=== PATIENT | male | born 1990 | race Caucasian/White ===

== ENCOUNTER 2025-03-27 16:55 | Emergency (ER) | payer MEDICAID, SELFPAY ==
[2025-03-27 16:56] VITALS: BP 125/82; PULSE 86; RESP 18; TEMP 37.4; O2SAT 96; BMI 23.8
--- NOTE | 2025-03-27 18:39 | ED.RN ---
Pt's name called for placement in ED room from waiting room. Pt not located, assumed lwbs.
--- OUTSIDE RECORDS SUMMARY | 2025-03-27 18:42 | XMS RPT_ITS | CCD ---
Author Organization [facility] Care Team Providers Care Microfabrication Engineer Manager Name Role Phone Nelson Galan DO Primary Care Provider [phone] JONY MCKEON Attending Unavailable NELSON GALAN Primary Care Unavailable Allergies Allergy Classification Reported Allergen(s) Allergy Type Date of Onset Reaction(s) Facility (4 sources) Penicillins Propensity to adverse reactions 12-06-2024 Hives [facility] Health Problems Problem Classification Problem Date Documented Da te Episodic/Chronic Anxiety disorders (9 sources) Mixed anxiety and depressive disorder; Translations: [Other specified anxiety disorders] Onset: 12-06-2024 12-06-2024 Chronic Immunizations and screening for infectious disease (9 sources) Hepatitis B screening required; Translations: [Encounter for screening for other viral diseases] Onset: 12-06-2024 12-06-2024 Episodic Other infections; including parasitic (7 sources) History of hepatitis C; Translations: [Personal history of other infectious and parasitic diseases] Onset: 12-06-2024 12-06-2024 Episodic Other infections; including parasitic (2 sources) Personal history of other infectious and parasitic diseases; Translations: [Personal history of other infectious and parasitic diseases] Onset: 12-06-2024 Episodic Residual codes; unclassified (8 sources) Insomnia; Translations: [Other insomnia] Onset: 12-06-2024 12-06-2024 Chronic Residual codes; unclassified (1 source) Other insomnia; Translations: [Other insomnia] Onset: 12-06-2024 Chronic Residual codes; unclassified (16 sources) Personal history of other specified conditions; Translations: [Other specified personal history presenting hazards to health] Onset: 12-06-2024 12-06-2024 Episodic Substance-related disorders (9 sources) Tobacco user; Translations: [Nicotine dependence, unspecified, uncomplicated] Onset: 08-04-2025 08-04-2025 Chronic Results Test Name Value Interpretation Reference Range Facility HCV RNA panel TAHIR+probeon HCV RNA TAHIR+probe [Log units/Vol] Not detected [facility] HCV RNA TAHIR+probe Qn Not detected [facility] Interpretation and review of laboratory results Normal [facility] The linear detection limit for this assay is 15 HCV IU/ml. A result of <15 IU (<1.18 log IU) indicates that HCV was detected, but at a level below the linear cutoff. A result of None Detected means that no HCV RNA was detected. This test is performed via rtPCR methodology. [facility] Progress Noteon 12-08-2024 Progress Note - Previously treated for Hep C - Will get Hep C viral load to further evaluate Normal [facility] 37on 12-06-2024 37 If anxiety, depression, and insomnia worsens, may schedule appointment sooner Normal [facility] CBC (HEMOGRAM)on 12-06-2024 Erythrocyte distribution width (RBC) [Ratio] 12.6 % Normal 11.5-15.0 [facility] Comment on above: Performed By: #### L [id number] ####Court Security Officer: NORBERTO AGUSTIN ([id number])[address] Hematocrit (Bld) [Volume fraction] 42.1 % Normal 40.0-52.0 [facility] Comment on above: Performed By: #### L [id number] ####Court Security Officer: NORBERTO [id number])[address] Hemoglobin (Bld) [Mass/Vol] 13.9 g/dL Normal 13.0-18.0 [facility] Comment on above: Performed By: #### L [id number] ####Court Security Officer: NORBERTO [id number])[address] MCH (RBC) [Entitic mass] 30.9 pg Normal 26.0-34.0 [facility] Comment on above: Performed By: #### L [id number] ####Court Security Officer: NORBERTO [id number])[facility])[address] [place] [address] MCHC 33.0 % Normal 30.5-36.0 [facility] Comment on above: Performed By: #### L [id number] ####Court Security Officer: NORBERTO AGUSTIN ([id number])[facility] ([facility])[address] [place] [address] MCV (RBC) [Entitic vol] 93.6 fL Normal 77.0-99.0 [facility] Comment on above: Performed By: #### L [id number] ####Court Security Officer: NORBERTO AGUSTIN ([id number])[facility] ([facility])[address] [place] [address] Platelet mean volume (Bld) [Entitic vol] 9.2 fL Normal 9.0-12.7 [facility] Comment on above: Performed By: #### L [id number] ####Court Security Officer: NORBERTO AGUSTIN ([id number])[facility] ([facility])[address] [place] [address] Platelets (Bld) [#/Vol] 283 10*3/uL Normal 140-440 [facility] Comment on above: Performed By: #### L [id number] ####Court Security Officer: NORBERTO AGUSTIN ([id number])[facility] ([facility])[address] [place] [address] RBC (Bld) [#/Vol] 4.50 10*6/uL Normal 4.40-5.90 [facility] Comment on above: Performed By: #### L [id number] ####Court Security Officer: NORBERTO AGUSTIN ([id number])[facility] ([facility])[address] [place] [address] WBC (Bld) [#/Vol] 10.2 10*3/uL Normal 3.6-10.7 [facility] Comment on above: Performed By: #### L [id number] ####Court Security Officer: NORBERTO AGUSTIN ([id number])[facility] ([facility])[address] [place] [address] CBC panel Auto (Bld)on 12-06 Erythrocyte distribution width (RBC) [Ratio] 12.6 % 11.5 - 15.0 % [facility] Hematocrit (Bld) [Volume fraction] 42.1 % 40.0 - 52.0 % [facility] Hemoglobin (Bld) [Mass/Vol] 13.9 g/dL 13.0 - 18.0 g/dL [facility] Interpretation and review of laboratory results Normal [facility] MCH (RBC) [Entitic mass] 30.9 pg 26.0 - 34.0 pg [facility] MCHC (RBC) [Mass/Vol] 33 % 30.5 - 36.0 % [facility] MCV (RBC) [Entitic vol] 93.6 fL 77.0 - 99.0 fL [facility] Platelet mean volume (Bld) [Entitic vol] 9.2 fL 9.0 - 12.7 fL [facility] Platelets (Bld) [#/Vol] 283 10*3/uL 140 - 440 10*3/uL [facility] RBC (Bld) [#/Vol] 4.5 10*6/uL 4.40 - 5.9 0 10*6/uL [facility] WBC (Bld) [#/Vol] 10.2 10*3/uL 3.6 - 10.7 10*3/uL [facility] COMPREHENSIVE METABOLIC PANE [place] 12-06-2024 Albumin [Mass/Vol] 4.1 g/dL Normal 3.5-5.0 [facility] Comment on above: Performed By: #### L [id number], LAB17 ####Court Security Officer: NORBERTO AGUSTIN ([id number])[facility] ([facility])[address] [place] [address] ALP [Catalytic activity/Vol] 51 U/L Normal 40-150 [facility] Comment on above: Performed By: #### L AB129, LAB17 ####Court Security Officer: NORBERTO AGUSTIN ([id number])[facility])[address] [place] [address] ALT [Catalytic activity/Vol] 22 U/L Normal <40 [facility] Comment on above: Performed By: #### L [id number], LAB17 ####Court Security Officer: NORBERTO AGUSTIN ([id number])[facility])[address] [place] [address] Anion gap [Moles/Vol] 10 mmol/L Normal 3-13 [facility] Comment on above: Performed By: #### L AB129, LAB17 ####Court Security Officer: NORBERTO AGUSTIN ([id number])[facility] ([facility])[address] [place] [address] AST [Catalytic activity/Vol] 27 U/L Normal <34 [facility] Comment on above: Performed By: #### L [id number], LAB17 ####Court Security Officer: NORBERTO AGUSTIN ([id number])[facility] ([facility])[address] [place] [address] Bilirubin [Mass/Vol] 0.4 mg/dL Normal <1.2 [facility] Comment on above: Performed By: #### L AB129, LAB17 ####Court Security Officer: NORBERTO AGUSTIN ([id number])[facility] ([facility])[address] [place] [address] Calcium [Mass/Vol] 9.6 mg/dL Normal 8.4-10.2 [facility] Comment on above: Performed By: #### L AB129, LAB17 ####Court Security Officer: NORBERTO AGUSTIN ([id number])[facility] ([facility])[address] [place] [address] [place] Chloride [Moles/Vol] 104 mmol/L Normal 98-107 [facility] Comment on above: Performed By: #### L AB129, LAB17 ####Court Security Officer: NORBERTO AGUSTIN ([id number])[facility] ([facility])[address] [place] [address] [place] CO2 [Moles/Vol] 25 mmol/L Normal 22-29 [facility] Comment on above: Performed By: #### L AB129, LAB17 ####Court Security Officer: NORBERTO AGUSTIN ([id number])[facility] ([facility])[address] [place] [address] [place] Creatinine [Mass/Vol] 0.91 mg/dL Normal 0.72-1.25 [facility] Comment on above: Performed By: #### L [id number], LAB17 ####Court Security Officer: NORBERTO AGUSTIN ([id number])[facility])[address] [place] [address] GLOMERULAR FILTRATION RATE ML/MIN/1.73 SQ M.PREDICTED >90.0 Normal >60.0 [facility] Comment on above: Result Comment: Calc ulation based on the Chronic Kidney Disease Epidemiology Collaboration (CKD-EPI) equation refit without adjustment for race Performed By: #### L [id number], LAB17 ####Court Security Officer: NORBERTO AGUSTIN ([id number])[facility])[address] [place] [address] Glucose [Mass/Vol] 85 mg/dL Normal 74-100 [facility] Comment on above: Performed By: #### L AB129, LAB17 ####Court Security Officer: NORBERTO AGUSTIN ([id number])[facility])[address] [place] [address] Potassium [Moles/Vol] 4.7 mmol/L Normal 3.5-5.1 [facility] Comment on above: Result Comment: [facility] potassium values may be up to 0.5 mmol/L lower than serum values. Performed By: #### L AB129, LAB17 ####Court Security Officer: NORBERTO AGUSTIN ([id number])[facility])[address] [place] [address] Protein [Mass/Vol] 7.0 g/dL Normal 6.4-8.3 [facility] Comment on above: Performed By: #### L AB129, LAB17 ####Court Security Officer: NORBERTO AGUSTIN ([id number])[facility])[address] [place] [address] Sodium [Moles/Vol] 139 mmol/L Normal 136-145 [facility] Comment on above: Performed By: #### L [id number], LAB17 ####Court Security Officer: NORBERTO [id number])[facility])[address] [place] [address] Urea nitrogen [Mass/Vol] 19 mg/dL Normal 8-21 [facility] Comment on above: Performed By: #### L [id number], LAB17 ####Court Security Officer: NORBERTO AGUSTIN ([phone])[facility])[address] [place] [address] Comprehensive metabolic 1998 panelon 12-06-2024 Albumin [Mass/Vol] 4.1 g/dL 3.5 - 5.0 g/dL [facility] ALP [Catalytic activity/Vol] 51 U/L 40 - 150 U/L [facility] ALT [Catalytic activity/Vol] 22 U/L NINF - 40 U/L [facility] Anion gap [Moles/Vol] 10 mmol/L 3 - 13 mmol/L [facility] AST [Catalytic activity/Vol] 27 U/L NINF - 34 U/L [facility] Bilirubin [Mass/Vol] 0.4 mg/dL NINF - 1.2 mg/dL [facility] Calcium [Mass/Vol] 9.6 mg/dL 8.4 - 10. 2 mg/dL [facility] Chloride [Moles/Vol] 104 mmol/L 98 - 10 7 mmol/L [facility] CO2 [Moles/Vol] 25 mmol/L 22 - 29 mmol/L [facility] Creatinine [Mass/Vol] 0.91 mg/dL 0.72 - 1.25 mg/dL [facility] GFR/1.73 sq M.predicted (S/P/Bld) [Vol rate/Area] - PINF [facility] Comment on above: Calculation based on the Chronic Kidney Disease Epidemiology Collaboration (CKD-EPI) equation refit without adjustment for race Glucose [Mass/Vol] 85 mg/dL 74 - 100 mg/dL [facility] Interpretation and review of laboratory results Normal [facility] Potassium [Moles/Vol] 4.7 mmol/L 3.5 - 5.1 mmol/L [facility] Comment on above: Plasma potassium chang ues may be up to 0.5 mmol/L lower than serum values. Protein [Mass/Vol] 7 g/dL 6.4 - 8.3 g/dL [facility] Sodium [Moles/Vol] 139 mmol/L 136 - 145 mmol/L [facility] Urea nitrogen [Mass/Vol] 19 mg/dL 8 - 21 mg/d L [facility] HBV surface Ab IA QnOrdered By: June Ansari on 12-06-2024 Interpretation: <8.0 Non-Reactive 8.0-11.9 Equivocal >= 12.0 Ab Detected Note: If an equivocal result is interpreted, an antibody status is unable to be determined. Collect new specimen if clinically indicated. [facility] HEPATITIS B CORE ANTIBODY, T OTAL - BKR QUESTon 12-06-2024 QUEST HEPATITIS B CORE AB TOTAL Non-Reactive Normal Nonreactive [facility] Comment on above: Result Comment: Test Performed by [email or web address], [employer] [facility], [address] [place] [address] Rafael Cristina M.D., Ph.D., Director of Laboratories , [place] [id number] Performed By: #### L [id number] ####[employer] ([employer])[address] [place] [address] [place] HEPATITIS B SURFACE ANTIBODY on 12-06-2024 HEPATITIS B VIRUS SURFACE AB >1000.0 Normal [facility] Comment on above: Result Comment: KASHMIR Fraire COMMENTS: Interpretation: <8.0 Non-Reactive 8.0-11.9 Equivocal >= 12.0 Ab Detected Note: If an equivocal result is interpreted, an antibody status is unable to be determined. Collect new specimen if clinically indicated. Performed By: #### L [id number], [id number] ####Court Security Officer: NORBERTO AGUSTIN ([id number])[facility] ([address] HEPATITIS C VIRAL LOADon HCV RNA QUANT (ND) Not detected Normal <15 [facility] Comment on above: Performed By: #### L [id number] ####Court Security Officer: NORBERTO AGUSTIN ([id number])[facility] ([facility])[address] [place] [address] HCV RNA QUANT LOG (ND) Not detected Normal <1.18 [facility] Comment on above: Result Comment: KASHMIR Fraire COMMENTS: The linear detection limit for this assay is 15 HCV IU/ml. A result of <15 IU (<1.18 log IU) indicates that HCV was detected, but at a level below the linear cutoff. A result of None Detected means that no HCV RNA was detected. This test is performed via rtPCR methodology. Performed By: #### L [id number] ####Court Security Officer: NORBERTO AGUSTIN ([id number])[facility] ([facility])[address] [place] [address] HIV 1+2 Ab+HIV1 p24 Ag IA Ql on 12-06-2024 Interpretation and review of laboratory results Normal [facility] HIV1,2 COMBO ANTIGEN-ANTIBOD Y SCREENon 12-06-2024 HIV 1,2 COMBO ANTIGEN/ANTIBODY Non-Reactive Normal Nonreactive [facility] Comment on above: Result Comment: The specimen was non-reactive for HIV-1 and HIV-2 antibodies and p24 antigen using an FDA-cleared 4th generation HIV test. Based on this non-reactive screen result, further reflexive testing was not indicated and was, therefore, not performed. Performed By: #### L [id number], [id number] ####Court Security Officer: NORBERTO AGUSTIN ([id number])[facility] ([facility])[address] [place] [address] Laboratory - Chemistry and C hemistry - challengeon 12-06-2024 TSH Qn 1.38 m[IU]/L [facility] Laboratory - Microbiology an d Antimicrobial susceptibilityOrdered By: June Ansari on 12-06-2024 HBV surface Ab IA Qn mIU/mL [facility] Laboratory - Microbiology an d Antimicrobial susceptibilityon 12-06-2024 HIV 1+2 Ab+HIV1 p24 Ag IA Ql Non-Reactive Nonreactive [facility] Comment on above: The specimen was non -reactive for HIV-1 and HIV-2 antibodies and p24 antigen using an FDA-cleared 4th generation HIV test. Based on this non-reactive screen result, further reflexive testing was not indicated and was, therefore, not performed. 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 - Currently staying at [facility] - HIV screening today Orders: HIV-1 and HIV-2 Antigen-Antibody Screen Normal [facility] Progress Note - Chronic, controlle d - Current PHQ-9 of 1, no SI/HI - Lives at [facility] living, sees counselling routinely - Overall feels well currently, not interested in medical intervention - Discussed to scheduled appt sooner if feeling increased depressed/anxious to discuss further Orders: Comprehensive metabolic panel CBC TSH Normal [facility] Progress Note - Previously treated for Hep C - Will get Hep C viral load to further evaluate Orders: Hepatitis C viral load Normal [facility] Progress Note - Chronic, controlle d - Takes melatonin nightly PRN - Is sleeping well currently, not interested in further intervention - will get TSH and CMP to evaluate Orders: Comprehensive metabolic panel TSH Normal [facility] Progress Note Ma time rooming patient 6 minutes Tay Griggs MA on 12/06/2024 at 2:39 PM [facility] Progress Note - Chronic, uncontrolled - Is decreasing intake, currently 5 cigarettes daily, mostly vaping - Encouraged cessation Orders: Comprehensive metabolic panel CBC Normal [facility] Progress Note - Route screening fo r Hep B Orders: Hepatitis B surface antibody Hepatitis B core antibody, total Normal [facility] Progress Note Teaching Physician Note Indirect Supervision - Modifier GE During or immediately after this visit, I discussed this case with the treating resident. Our discussion included the history obtained by the resident, the resident's exam findings, and the resident's treatment plan. Please see resident?s note for further details.This service has been performed by a resident without the presence of a teaching physician under the primary care exception (GE Modifier). Normal [facility] Progress Note [facility] - [address] [facility] [address] Dept: [phone] Dept Loc: [phone] 12/06/2024 Visit type: New Patient Appointment Reason for Visit: New Patient, Blood Work, and Referral ASSESSMENT/PLAN Assessment & Plan Depression with anxiety - Chronic, controlled - Current PHQ-9 of 1, no SI/HI - Lives at sober living, sees counselling routinely - Overall feels well currently, not interested in medical intervention - Discussed to scheduled appt sooner if feeling increased depressed/anxious to discuss further Orders: Comprehensive metabolic panel CBC TSH Other insomnia - Chronic, controlled - Takes melatonin nightly PRN - Is sleeping well currently, not interested in further intervention - will get TSH and CMP to evaluate Orders: Comprehensive metabolic panel TSH Tobacco use disorder - Chronic, uncontrolled - Is decreasing intake, currently 5 cigarettes daily, mostly vaping - Encouraged cessation Orders: Comprehensive metabolic panel CBC History of substance use disorder - 80 Days sober currently from Meth and Marijuana - Currently staying at [facility] - HIV screening today Orders: HIV-1 and HIV-2 Antigen-Antibody Screen History of hepatitis C - Previously treated for Hep C - Will get Hep C viral load to further evaluate Orders: Hepatitis C viral load Need for hepatitis B screening test - Route screening for Hep B Orders: Hepatitis B surface antibody Hepatitis B core antibody, total History of alcohol use disorder - Currently 80 days sober while living at sober living - Evaluate LFTs with CMP Follow up in about 3 months (around 03/08/2025) for Routine checkup. Subjective Patient: Luis Alberto Cali is a 34 y.o. male with PMH of Anxiety, Depression, Insomnia, HPI Patient presents for a new patient appointment. Stays with recovery housing. PMH - Anxiety, depression, insomnia. - Has been in counseling since 7, and currently still is at sober living facility - Previously on Zoloft, PHQ-9 of 1 today, not interested in medications, no SI/HI Meds - Melatonin at night PSH - Knee cap surgery - Tonsils & adenoids removed SH - 80 days sober, smoking weed and meth most recently. Stays with sober living for this period, since 24 of September. - Nothing with injectables or needles (only once in life injected drugs) - Never drinks alcohols - 5/day cigarettes and vaping. Used to be a pack of day. Continuing to decrease by self. - Had hepatitis C, incarcerated [id number], and 2020. - Works at [employer] - Mom - diabetes, htn, cancer liver, Dad - Condition - Sister and brother, dont know Allergies - Penicillin gets hives and rash. Was a kid when had this. Hospitalizations - None Review of Systems All other systems reviewed and are negative. Allergies[1] Current Medications[2] Medical History[3] Surgical History[4] Family History[5] Social History Tobacco Use Smoking status: Every Day Current packs/day: 0.25 Types: Cigarettes Smokeless tobacco: Current Substance Use Topics Alcohol use: Not on file Objective BP 134/72 Pulse 64 Temp 36.4 ?C (97.5 ?F) (Temporal) Ht 6' 3 (1.905 m) Wt 186 lb (84.4 kg) SpO2 97% Comment: room air BMI 23.25 kg/m? Physical Exam Constitutional: Appearance: Normal appearance. HENT: Head: Normocephalic and atraumatic. Mouth/Throat: Mouth: Mucous membranes are moist. Eyes: Conjunctiva/sclera: Conjunctivae normal. Pupils: Pupils are equal, round, and reactive to light. Cardiovascular: Rate and Rhythm: Normal rate and regular rhythm. Pulses: Normal pulses. Heart sounds: Normal heart sounds. No murmur heard. No friction rub. No gallop. Pulmonary: Effort: No respiratory distress. Breath sounds: Normal breath sounds. No wheezing or rales. Abdominal: General: Abdomen is flat. There is no distension. Palpations: Abdomen is soft. Tenderness: There is no abdominal tenderness. There is no guarding. Musculoskeletal: General: No swelling. Right lower leg: No edema. Left lower leg: No edema. Skin: Coloration: Skin is not jaundiced. Findings: No lesion. Neurological: General: No focal deficit present. Mental Status: He is alert and oriented to person, place, and time. Psychiatric: Mood and Affect: Mood normal. Behavior: Behavior normal. Data Reviewed and Summarized: Medical decision making including: See Assessment/Plan [facility] Staffed with: Dr. Vahid Mckeon Signed by: Nelson Galan DO, PGY : 2 Electronically signed on: 12/08/2024 [1] Allergies Allergen Reactions Penicillins Hives [2] No current outpatient medications on file. [3] No past medical history on file. [4] No past surgical history on file. [5] No family history on file. Normal [facility] Progress Note - Currently 80 days sober while living at sober living - Evaluate LFTs with CMP Normal [facility] THYROID STIMULATING HORMONEo n 12-06-2024 THYROID STIMULATING HORMONE 1.38 uIU/mL Normal 0.35-4.94 [facility] Comment on above: Performed By: #### L [id number], LAB17 ####Court Security Officer: NORBERTO AGUSTIN ([phone])[facility] ([address] TSH Qnon 12-06-2024 Interpretation and review of laboratory results Normal [facility] Provider Note - ED v2on 06-05 Provider Note - ED v2 Provider Note - ED v2: Chart Review: ED NOTES ED NOTES: ====HPI==== Patient states he has a past medical history of dental issues. He states over the last 1-2 days he's noticed increasing pain and swelling to his right lower jaw. He denies any recent trauma fevers chills or trouble breathing or swallowing. He states he's had multiple dental infections in the past and feels he has another one based on his symptoms and therefore comes in today discuss antibiotic treatment. Character: Severity: Mild to moderate Exacerbated by: Nothing Improved by: Nothing Recently seen by: Denies ====Review of Systems==== 10 point system review is negative except for those specifically mentioned in history of present illness ====Physical Exam==== Constitutional/Genera l: Alert and conversant, well appearing, nontoxic, and in NAD. Head: Normocephalic and atraumatic. Eyes: PER, conjunctive normal, sclera nonicteric, subconjunctival layer is pink. Mouth: handling secretions, no trismus, moist mucous membranes. Multiple dental caries are present without obvious dental abscess and there is no airway edema or compromise Neck: Supple, full ROM, no stridor, no crepitus, no meningeal signs. Trachea at midline. No brawny edema in the submental space to suggest Jeremie's angina Respiratory: not in respiratory distress. Chest: normal chest movement Lymphatics: Positive anterior cervical lymphadenopathy Musculoskeletal: Moves all extremities, warm and well perfused Integument: Skin warm and dry, no rashes. Neurologic: GCS 15, no focal deficits Psychiatric: Normal affect. ====ED Course and Medical Decision Making==== Patient arrived with stable vitals she had no respiratory distress no airway edema and no changes to suggest Jeremie's angina. Therefore this time I feel no need for imaging or laboratory studies. We discussed possible dental block for pain control but patient does not want this at this time. Therefore patient will be started on clindamycin for infection control and discharged with outpatient follow-up Portions of this note were dictated by speech recognition. An attempt at proof reading was made to minimize errors. Minor errors in preschool assistant principal may be present. Please call if questions.. HISTORY OF PRESENTING ILLNESS LUIS ALBERTO is a 28 year old Male and was seen by me at 20-Jun-2019 20:38 for a chief complaint of toothache (pain started yesterday, swelling started today, bottom tooth on right side, has chipped tooth, poor dental care, no dentist)(1). Triage Information: Most recent Vital Sign Value Date Temp (F): 98.6 06-20-2019 20:37 Temp (C): 37 06-20-2019 20:37 Heart Rate (beats/min): 87 06-20-2019 20:37 Respirations (breaths/min): 18 06-20-2019 20:37 SpO2 (%): 99 06-20-2019 20:37 BP Systolic (mm Hg): 141 06-20-2019 20:37 BP Diastolic (mm Hg): 91 06-20-2019 20:37 PAST MEDICAL HISTORY ATTESTATION: I have reviewed and confirmed nurse's/medic's notes for patient's medications, allergies, medical history, and surgical history ALLERGIES/INTOLERANCE S: No Known Allergies HEALTH HISTORY: No documented data. OUTPATIENT MEDICATIONS: Home Medications Review Status for Reconciliation: N/A Med Status: N/A No documented data. SIGNIFICANT EVENTS: Past Surgical History Description:Right knee surgery CLINICAL IMPRESSION Diagnosis/Annotation: ED Dx Name:Dental caries Code:K02.9 Name:Dental infection Code:K04.7 Dispostion: discharged Type: home ATTESTATION CRITICAL CARE TIME Is this a critically ill patient: no Electronic Signatures: Josue Campoverde) (Signed 20-Jun-2019 21:18) Authored: Provider Note - ED v2 Last Updated: 20-Jun-2019 21:18 by Josue Campoverde () References: 1. Data Referenced From Triage - ED 20-Jun-2019 20:37 [facility] Risk Screen - Adult Emergenc yon 06-20-2019 Risk Screen - Adult Emergency Preferred Language: Preferred Language: Preferred Language for Discussing Health Care (patient/designee)Eng azul Advanced Directives: Advance Directive/DNRno Advance Directive Information Givenpatient/family declined Family Violence Adult: Abuse Screen: Are you or have you been threatened or abused physically, emotionally, or sexually by anyoneno Learning Assessment (Patient): Learning Assessment (Patient): Patient is Able to be Assessed for Learningyes Factors Influencing Readiness to Learnmotivation to learn Factors that Impact Ability to Learnnone Devices/Methods Used to Communicatenone Learning Preferencesaudio Cultural Considerationsnone Developmental Considerationsnone Taoism Considerationsnone Learning Assessment (Other Learner): Learning Assessment (Other Learner): Other learner availableno Pressure Injury/TB/Substance: Pressure Injury: Pressure Injury Present on Admissionno Do you have a coughno Substance Use Current or Former Historynever: e-Cigarette/Vaping, Alcohol YES: Cigarette/Tobacco, Street Drugs Smoking Statuscurrent every day smoker Tobacco Cessation Education (provide if tobacco use within the last 12 mos) patient declined Drug Usedaily Street Drug/Medication/ Inhalant Use Additional Commentsweed Admission Risk Screen: Significant IndicatorsComplete CAGE: CAGE: Is this an injured patient at a Trauma Center ([facility]/[place]): no Electronic Signatures: Bhavani Enriquez) (Signed 20-Jun-2019 20:46) Authored: Preferred Language, Advanced Directives, Family Violence Adult, Learning Assessment (Patient), Learning Assessment (Other Learner), Pressure Injury/TB/Substance, CAGE Last Updated: 20-Jun-2019 20:46 by Bhavani Enriquez (ZARI) [facility] Triage - EDon 06-20-2019 Triage - ED Quick Triage: The patient and/or guardian verbally acknowledges placement for services into the following (when Urgent Care Service hours are operating):emergency department Chart Review: CHIEF COMPLAINT LUIS ALBERTO CALI is a Male patient with a chief complaint of toothache (pain started yesterday, swelling started today, bottom tooth on right side, has chipped tooth, poor dental care, no dentist). Triage Date/Time: 20-Jun-2019 20:37 Pain Rating (0-10): 9 = Severe Vital Signs: Temperature: 98.6F ( 37.0C) taken oral Blood Pressure: 141/91 Mean: Heart Rate: 87 Respiratory Rate: 18 Pulse Oximetry: 99% on room air, no respiratory support. Height: 6 feet 2.00 inches. 187.9 CM Weight: 180.0 pounds. Calculated 81.6 kg. (stated) Calculated BMI (kg/m2): 23.111 Calculated BSA (m2) 2.06 Jeffrey Coma Scale: Best Eye Response: (E4) spontaneous Best Motor Response: (M6) obeys commands Best Verbal Response: (V5) oriented Jeffrey Score: 15 Cough lasting greater than 3 weeks: no Travel outside of [facility]: no Allergies: no Patient has homicidal thoughts: no JASMYN: 4 Symptoms Are POSITIVE For: earache, facial pain, jaw pain, mouth sores, pain (describe), toothache and tooth loss. Symptoms Are Negative For: bleeding, fever and headache. Risk Screens Suicide Risk Screen In the Past Month: Have you wished you were or wished you could go to sleep and not wake up no In the Past Month: Have you had any actual thoughts of killing yourself no In Your Lifetime: Have you ever done anything, started to do anything, or prepared to do anything to end your life no Hancock Fall Scale Screening Has the patient fallen before (or is the patient in the ED as a result of a fall) has not had a fall Does the patient have an impaired gait does not have impaired gait Is the patient cognitively impaired not cognitively impaired Interventions: Santi Fall Interventions: *patient oriented to surroundings and call system, * patient/family falls education completed and documented, *patients fall status communicated during bedside handoff, *whiteboard updated, *mode of toileting discussed with patient, *bed in low position with brakes locked, *call light in reach, * non-skid footwear PAIN Pain Scale Used: JEFFREY Pain Rating (0-10): 9 = Severe Past Medical History: Past Medical History Reviewedyes Right knee surgery: Past Surgical History, Active Electronic Signatures: Bhavani Enriquez (RN) (Signed 20-Jun-2019 20:42) Authored: Triage, Past Medical History Last Updated: 20-Jun-2019 20:42 by Bhavani Enriquez (RN) [facility] Vital Signs Date Time Vital Sign Value Performing Clinician Faci suma 12-06-2024 14:40-0400 Diastolic blood pressure 72 mm[Hg] Nelson Mcclurei DO Work Phone: [employer] 12-06-2024 14:40-0400 Heart rate 64 /min Nelson Mcclurei DO Work Phone: [employer] 12-06-2024 14:40-0400 Systolic blood pressure 134 mm[Hg] Nelson Mcclurei DO Work Phone: [employer] 12-06-2024 14:34-0400 Body height 190.5 cm Nelson Kamii DO Work Phone: [employer] 12-06-2024 14:34-0400 Body mass index (BMI) [Ratio] 23.25 kg/m2 Nelson Breonnadkhani DO Work Phone: [employer] 12-06-2024 14:34-0400 Body temperature 97.5 [degF] Nelson Mcclurei DO Work Phone: [employer] 12-06-2024 14:34-0400 Body weight 84.37 kg Nelson Mcclurei DO Work Phone: [employer] 12-06-2024 14:34-0400 SaO2% (BldA) [Mass fraction] 97 % Nelson Breonnadkhani DO Work Phone: [employer] Comment on above: room air Encounters Encounter Date Encounter Type Care Provider Facility Start: 12-10-2024 End: 12-10-2024 Follow-up encounter Nelson Mcclurei DO Work Phone: [facility] [place] Comment on above: Comprehensive metabo lic panel, Hepatitis B surface antibody, Hepatitis B core antibody, total, Additional followed-up results: 4 Start: 12-06-2024 End: 12-06-2024 Office outpatient new 30 minutes Jony Mckeon MD Work Phone: [facility] [place] Comment on above: Depression with anxi ety (Primary Dx); Other insomnia; Tobacco use disorder; History of substance use disorder; History of hepatitis C; Need for hepatitis B screening test; History of alcohol use disorder Start: 12-06-2024 End: 12-06-2024 ambulatory JONY MCKEON [facility] Procedures Date Procedure Procedure Detail Performing Clinician Start: 12-06-2024 Comprehensive metabo lic panel Nelson Cynthia DO Work Phone: Start: 12-06-2024 Hepatitis b surf ant ibody hbsab Nelson Galan DO Work Phone: Start: 12-06-2024 Iaad ia hiv-1 ag w/h iv-1 & hiv-2 antbdy single Nelson Cynthia DO Work Phone: Plan of Treatment Date Care Activity Detail Author Start: 08-22-2066 RSV Immunization for Adults (1 - 1-dose 75+ series) RSV Immunization for Adults (1 - 1-dose 75+ series) [facility] Start: 08-22-2041 Zoster Vaccines (1 of 2) Zoster Vacc kelsi (1 of 2) [facility] Start: 06-08-2025 Depression Monitoring Depression Mon itoring [facility] Start: 03-09-2025 End: 03-09-2025 Patient encounter procedure 03/09/2025 10:10 AM EST Office Visit [facility] [address] [place] [address] Beau Rizzo DO [address] [place] [address] [facility] Start: 01-03-2025 Influenza vaccination Influenza Vacc ine (#1) [facility] Start: 01-04-2024 COVID-19 Vaccine ( season) COVID-19 Vaccine ( season) [facility] Start: 08-22-2010 DTaP/Tdap/Td Vaccine s (1 - Tdap) DTaP/Tdap/Td Vaccines (1 - Tdap) [facility] Start: 08-22-2010 Hepatitis B Vaccines (1 of 3 - 19+ 3-dose series) Hepatitis B Vaccines (1 of 3 - 19+ 3-dose series) [facility] Start: 08-22-2010 Pneumococcal Vaccine : Pediatrics (0 to 5 Years) and At-Risk Patients (6 to 49 Years) (1 of 2 - PCV) Pneumococcal Vaccine: Pediatrics (0 to 5 Years) and At-Risk Patients (6 to 49 Years) (1 of 2 - PCV) [facility] Start: 08-22-2004 Varicella vaccination Varicell a Vaccines (1 of 2 - 13+ 2-dose series) [facility] Start: 08-22-1992 MMR Vaccines (1 of 1 - Standard series) MMR Vaccines (1 of 1 - Standard series) [facility] Start: 1991 Lipid panel Lipid Panel [facility] Hepatitis B core antibody, total Hepatitis B core antibody, total Lab Routine Need for hepatitis B screening test 12/06/2024 4:10 PM EDT [facility] Work Phone: Payers Date Payer Category Payer Medicaid HMO [employer] [id number] 2024 Medicaid [id number] Social History Date Type Detail Facility Start: 12-06-2024 Tobacco smoking status WYIS Smokes t obacco daily [facility] History of tobacco use Cigarette Smoker [facility] Start: 12-06-2024 Tobacco use and exposure User of smokeless tobacco [facility] Start: 12-06-2024 History of Social function [facility] Start: 12-06-2024 Alcohol Use Disorder Identification Test - Consumption [AUDIT-C] [facility] How often to you hav e a drink containing alcohol? Never [facility] Average Number of Drinks Not on file [facility] How hard is it for y ou to pay for the very basics like food, housing, medical care, and heating Somewhat hard [facility] Start: 1991 Sex assigned at Not on file [facility] Start: 12-03-2021 Sex Male (finding) [facility] Functional Status Date Assessment Result Facility 12-06-2024 Patient Health Questionnaire 2 item (PHQ- 2) [Reported] [facility] Clinical Notes 12-06-2024 to 12-08-2024 Assessment & Plan Note - Nelson Galan DO - 12/08/2024 9:25 AM EDTAssessment & Plan Note - Nelson Galan DO - 12/08/2024 9:25 AM EDTNelson Galan DO - 12/06/2024 2:30 PM EDT Note Date & Type Note Facility 12-08-2024 Evaluation + Plan note Associ ated Problem(s): History of hepatitis C - Previously treated for Hep C - Will get Hep C viral load to further evaluate [facility] 12-08-2024 Miscellaneous Notes Associate d Problem(s): History of hepatitis C - Previously treated for Hep C - Will get Hep C viral load to further evaluate Associated Problem(s): Depression with anxiety - Chronic, controlled - Current PHQ-9 of 1, no SI/HI - Lives at sober living, sees counselling routinely - Overall feels well currently, not interested in medical intervention - Discussed to scheduled appt sooner if feeling increased depressed/anxious to discuss further Orders: Comprehensive metabolic panel CBC TSH Associated Problem(s): Other insomnia - Chronic, controlled - Takes melatonin nightly PRN - Is sleeping well currently, not interested in further intervention - will get TSH and CMP to evaluate Orders: Comprehensive metabolic panel TSH Associated Problem(s): Tobacco use disorder - Chronic, uncontrolled - Is decreasing intake, currently 5 cigarettes daily, mostly vaping - Encouraged cessation Orders: Comprehensive metabolic panel CBC Associated Problem(s): History of substance use disorder - 80 Days sober currently from Meth and Marijuana - [facility] - HIV screening today Orders: HIV-1 and HIV-2 Antigen-Antibody Screen Associated Problem(s): Need for hepatitis B screening test - Route screening for Hep B Orders: Hepatitis B surface antibody Hepatitis B core antibody, total Associated Problem(s): History of alcohol use disorder - Currently 80 days sober while living at [facility] - Evaluate LFTs with CMP Associated Problem(s): History of hepatitis C - Previously treated for Hep C - Will get Hep C viral load to further evaluate Orders: Hepatitis C viral load documented in this encounter [facility] 12-06-2024 Evaluation + Plan note Associ ated Problem(s): Depression with anxiety - Chronic, controlled - Current PHQ-9 of 1, no SI/HI - [facility], [facility] - Overall feels well currently, not interested in medical intervention - Discussed to scheduled appt sooner if feeling increased depressed/anxious to discuss further Orders: Comprehensive metabolic panel CBC TSH [facility] 12-06-2024 Evaluation + Plan note Associ ated Problem(s): Other insomnia - Chronic, controlled - Takes melatonin nightly PRN - Is sleeping well currently, not interested in further intervention - will get TSH and CMP to evaluate Orders: Comprehensive metabolic panel TSH [facility] 12-06-2024 Evaluation + Plan note Associ ated Problem(s): Tobacco use disorder - Chronic, uncontrolled - Is decreasing intake, currently 5 cigarettes daily, mostly vaping - Encouraged cessation Orders: Comprehensive metabolic panel CBC [facility] 12-06-2024 Evaluation + Plan note Associ ated Problem(s): History of substance use disorder - 80 Days sober currently from Meth and Marijuana - [facility] - HIV screening today Orders: HIV-1 and HIV-2 Antigen-Antibody Screen [facility] 12-06-2024 Evaluation + Plan note Associ ated Problem(s): Need for hepatitis B screening test - Route screening for Hep B Orders: Hepatitis B surface antibody Hepatitis B core antibody, total [facility] 12-06-2024 Evaluation + Plan note Associ ated Problem(s): History of alcohol use disorder - Currently 80 days sober while living at sober living - Evaluate LFTs with CMP [facility] 12-06-2024 Evaluation + Plan note Associ ated Problem(s): History of hepatitis C - Previously treated for Hep C - Will get Hep C viral load to further evaluate Orders: Hepatitis C viral load T [facility] 12-06-2024 History of Presen t illness Narrative Images from the original note were not included. [facility] - [address] [address] Dept: [phone] Dept Loc: [phone] 12/06/2024 Visit type: New Patient Appointment Reason for Visit: New Patient, Blood Work, and Referral ASSESSMENT/PLAN Assessment & Plan Depression with anxiety - Chronic, controlled - Current PHQ-9 of 1, no SI/HI - Lives at sober living, sees counselling routinely - Overall feels well currently, not interested in medical intervention - Discussed to scheduled appt sooner if feeling increased depressed/anxious to discuss further Orders: Comprehensive metabolic panel CBC TSH Other insomnia - Chronic, controlled - Takes melatonin nightly PRN - Is sleeping well currently, not interested in further intervention - will get TSH and CMP to evaluate Orders: Comprehensive metabolic panel TSH Tobacco use disorder - Chronic, uncontrolled - Is decreasing intake, currently 5 cigarettes daily, mostly vaping - Encouraged cessation Orders: Comprehensive metabolic panel CBC History of substance use disorder - 80 Days sober currently from Meth and Marijuana - Currently staying at [facility] - HIV screening today Orders: HIV-1 and HIV-2 Antigen-Antibody Screen History of hepatitis C - Previously treated for Hep C - Will get Hep C viral load to further evaluate Orders: Hepatitis C viral load Need for hepatitis B screening test - Route screening for Hep B Orders: Hepatitis B surface antibody Hepatitis B core antibody, total History of alcohol use disorder - Currently 80 days sober while living at sober living - Evaluate LFTs with CMP Follow up in about 3 months (around 03/08/2025) for Routine checkup. Subjective Patient: Luis Alberto Cali is a 34 y.o. male with PMH of Anxiety, Depression, Insomnia, HPI Patient presents for a new patient appointment. Stays with recovery housing. PMH - Anxiety, depression, insomnia. - Has been in counseling since 7, and currently still is at sober living facility - Previously on Zoloft, PHQ-9 of 1 today, not interested in medications, no SI/HI Meds - Melatonin at night PSH - Knee cap surgery - Tonsils & adenoids removed SH - 80 days sober, smoking weed and meth most recently. Stays with sober living for this period, since 24 of September. - Nothing with injectables or needles (only once in life injected drugs) - Never drinks alcohols - 5/day cigarettes and vaping. Used to be a pack of day. Continuing to decrease by self. - Had hepatitis C, incarcerated [id number], and 2020. - Works at [employer] - Mom - diabetes, htn, cancer liver, Dad - Condition - Sister and brother, dont know Allergies - Penicillin gets hives and rash. Was a kid when had this. Hospitalizations - None Review of Systems All other systems reviewed and are negative. Allergies[1] Current Medications[2] Medical History[3] Surgical History[4] Family History[5] Social History Tobacco Use Smoking status: Every Day Current packs/day: 0.25 Types: Cigarettes Smokeless tobacco: Current Substance Use Topics Alcohol use: Not on file Objective BP 134/72 Pulse 64 Temp 36.4 C (97.5 F) (Temporal) Ht 6' 3 (1.905 m) Wt 186 lb (84.4 kg) SpO2 97% Comment: room air BMI 23.25 kg/m Physical Exam Constitutional: Appearance: Normal appearance. HENT: Head: Normocephalic and atraumatic. Mouth/Throat: Mouth: Mucous membranes are moist. Eyes: Conjunctiva/sclera: Conjunctivae normal. Pupils: Pupils are equal, round, and reactive to light. Cardiovascular: Rate and Rhythm: Normal rate and regular rhythm. Pulses: Normal pulses. Heart sounds: Normal heart sounds. No murmur heard. No friction rub. No gallop. Pulmonary: Effort: No respiratory distress. Breath sounds: Normal breath sounds. No wheezing or rales. Abdominal: General: Abdomen is flat. There is no distension. Palpations: Abdomen is soft. Tenderness: There is no abdominal tenderness. There is no guarding. Musculoskeletal: General: No swelling. Right lower leg: No edema. Left lower leg: No edema. Skin: Coloration: Skin is not jaundiced. Findings: No lesion. Neurological: General: No focal deficit present. Mental Status: He is alert and oriented to person, place, and time. Psychiatric: Mood and Affect: Mood normal. Behavior: Behavior normal. Data Reviewed and Summarized: Medical decision making including: See Assessment/Plan [facility] Staffed with: Dr. Vahid Mckeon Signed by: Nelson Galan DO, PGY : 2 Electronically signed on: 12/08/2024 [1] Allergies Allergen Reactions Penicillins Hives [2] No current outpatient medications on file. [3] No past medical history on file. [4] No past surgical history on file. [5] No family history on file. Jaxon time rooming patient 6 minutes Tay Griggs MA on 12/06/2024 at 2:39 PM Teaching Physician Note Indirect Supervision - Modifier GE During or immediately after this visit, I discussed this case with the treating resident. Our discussion included the history obtained by the resident, the resident's exam findings, and the resident's treatment plan. Please see resident s note for further details.This service has been performed by a resident without the presence of a teaching physician under the primary care exception (GE Modifier). documented in this encounter [facility] 12-06-2024 Instructions Nelson Galan DO - 12/06/2024 2:30 PM EDT If anxiety, depression, and insomnia worsens, may schedule appointment sooner documented in this encounter [facility] Health Evaluation note Diagnosis Depression with anxiety- Primary Dysthymic disorder Other insomnia Tobacco use disorder History of substance use disorder History of hepatitis C Personal history of other infectious and parasitic disease Need for hepatitis B screening test History of alcohol use disorder documented in this encounter [facility] Health Summary Purpose Family History No Family History Records FoundNo Family History Records Found Advance Directives No Advanced Directives Records FoundNo Advanced Directives Records Found Additional Source Comments (unrecognized sect ion and content) No Status Records FoundNo Status Records Found INFORMATION SOURCE (unrecogn ized section and content) DATE CREATED AUTHOR 06/24/2019 [facility] DATE CREATED AUTHOR AUTHOR'S ORGANIZ ATION 12/11/2024 [facility] Reason for Visit (unrecogniz ed section and content) Reason Comments New Patient Blood Work Referral Care Teams (unrecognized sec tion and content) Microfabrication Engineer Manager Relationship Specialty Start Date End Date Nelson Galan DO [address] [place] [address] PCP - General 12/06/24 Microfabrication Engineer Manager Relationship Specialty Start Date End Date Nelson Galan DO [address], [address] [place] [address] PCP - General 12/06/24 FOR RECORDS PERTAINING TO PATIENTS WHO ARE OR HAVE BEEN ENROLLED IN A CHEMICAL DEPENDENCY/SUBSTANCEABUSE PROGRAM, SOME INFORMATION MAY BE OMITTED. This clinical summary was aggregated from multiple sources. Caution should be exercised in using it in the provision of clinical care. This summary normalizes information from multiple sources, and as a consequence, information in this document may materially change the coding, format and clinical context of patient data. In addition, data may be omitted in some cases. CLINICAL DECISIONS SHOULD BE BASED ON THE PRIMARY CLINICAL RECORDS. [employer] [facility] provides no warranty or guarantee of the accuracy or completeness of information in this document.
== END 2025-03-27 18:35 | disposition left against medical advice (07) ==
LOC: ED 18:40
DX: Z53.21 Procedure and treatment not carried out due to patient leaving prior to being seen by health care provider (principal)